=== PATIENT | female | born 1945 | race Asian ===

== ENCOUNTER 2017-02-19 06:54 | Day surgery (SDC) | payer OTHER ==
[~2017-02-19] VITALS: Ht 160 cm; Wt 62.6 kg
[2017-02-19 07:48] VITALS: Ht 160 cm; Wt 62.6 kg
[2017-02-19] MEDS ORDERED: ASPI-535 PO (07:57)
[2017-02-19] MEDS ORDERED: simvastatin PO (07:57)
[2017-02-19] MEDS ORDERED: centrum PO (07:57)
[2017-02-19] MEDS ORDERED: amlodipine PO (07:57)
[2017-02-19 08:00] VITALS: BP 146/62; PULSE 77; RESP 18
[2017-02-19] MEDS ORDERED: MIDAZOLAM 1 MG/ML 2 ML INJ ONE ×2 (08:46)
[2017-02-19] MEDS ORDERED: FENTAnyl 50 MCG/ML VIAL ONE (08:46)
[2017-02-19 09:00] VITALS: BP 125/69; PULSE 78; RESP 18
--- NOTE | 2017-02-19 10:24 | GILP ---
DATE OF PROCEDURE: 02/19/2017 PROCEDURE: Colonoscopy. SURGEON: Ceferino Cortez MD PREOPERATIVE DIAGNOSIS: Screening colonoscopy to rule out colon polyps. POSTOPERATIVE DIAGNOSES: A 3 mm flat polyp was noted in the descending distal transverse colon whic h was removed with the cold biopsy forceps. Another 3 mm polyp noted in the proximal transverse col on. This was removed with the cold biopsy forceps. DESCRIPTION OF PROCEDURE: After informed written consent was obtained, the patient was asked to lie on the left lateral side. The patient was given 3 mg Versed and 50 mcg of fentanyl as intravenous anesthesia. When the patient became somnolent, the Olympus video colonoscope was introduced into the rectum and scope was advanced all the way to the cecum. Two polyps were noted, 1 was 3 mm in diameter in the d istal transverse colon. This was removed with the cold biopsy forceps. Another 3 mm polyp noted in the proximal transverse colon. This was also removed with the cold biopsy forceps. Rest of the en tire colon appeared perfectly normal. On the way out, no additional abnormalities detected. Retrof lexion was performed and no significant hemorrhoids were noted and the procedure was terminated. No additional abnormalities detected and at this time scope was withdrawn. PLAN: Recommend wait for the pathology report and recommend repeat colonoscopy in 5 years. Dictated By: CEFERINO PICKENS/NTS Conf#: [id number] DID#: [id number] CC: ; CEFERINO CORTEZ MD;*EndCC*
== END 2017-02-19 10:51 | disposition home or self-care (01) ==
LOC: GIL 06:54
PROVIDERS: ATTEND Internal Medicine Gastroenterology
DX: Z12.11 Encounter for screening for malignant neoplasm of colon (principal); D12.3 Benign neoplasm of transverse colon
CPT/HCPCS: 45380; 88305; J2250; J3010; Z7610